=== PATIENT | female | born 1995 | race Hispanic/Latino ===

== ENCOUNTER 2019-10-18 22:31 | Day surgery (SDC) | payer BC ==
[2019-10-18] MEDS ORDERED: hydrALAZINE 20 MG/ML VIAL SLOW IVP PRN (23:31)
[2019-10-18 23:34] LABS: Amnisure Internal Control QC ACCEPTABLE (ACCEPTABLE)
[2019-10-18 23:36] LABS: Amnisure Test No Membranes Rupture (No Rupture)
[2019-10-18 23:47] LABS: Bacteria/HPF None Seen HPF (None Seen); Bilirubin Negative (Negative); Blood, Urine Negative (Negative); Clarity Clear (Clear); Glucose, Urine (Dipstick) Normal (Negative); Leukocyte Negative Leu/uL (Negative); Nitrite Negative (Negative); Protein, Urine (Dipstick) Negative (Neg-Trace); RBC/HPF 0-3 HPF (0-3); Squamous Epithelial 0-3 HPF (0-3); Urobilinogen Normal mg/dL (Less than 2); WBC/HPF 0-3 HPF (0-3)
[2019-10-18 23:50] LABS: Urine Culture Reflex No No
--- NOTE | 2019-10-19 00:46 | PDOC.FPROB ---
FMR OB H&P: HPI - History of Present Illness Chief Complaint: Abdominal pain Indentification: 23 year old at 37.1 wks History of Present Illness: 23 year old at 37.1 wks presents with abdominal pain in pelvic area since 21:30. Patient does state that the pain is intermittent and does seem to last for two to three minutes at a time. She also had leaking of fluid which she presumed to be urine. This was around 21:00. Patient states that she has not noted any additional leaking since that time. She denies vaginal bleeding, vaginal discharge, dysuria. Patient endorses good movement. Primary Care Physician: Dr. 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: Denies history of STD's - Surgical History Sx History: Cholecystectomy - Social History Social History: Denies tobacco, alcohol, or drug use FMR OB H&P: Medications - Current Home Medications: Medication Instructions Recorded Confirmed Type Comb No.42/Folic Acid 1 tab PO DAILY 10/18/19 10/18/19 History [Prena1 Chewable Tablet] Allergies/Adverse Reactions: Allergies Allergy/AdvReac Type Severity Reaction Status Date / Time No Known Allergies Allergy Verified 10/18/19 22:54 FMR OB H&P: ROS - Review of Systems General: denies: fever/chills, weight/appetite/sleep changes Eyes: denies: vision changes, scotomas ENT: denies: nasal congestion, rhinorrhea, sore throat Cardiovascular: denies: chest pain, palpitation, edema Respiratory: denies: cough, congestion, shortness of breath Gastrointestinal: reports: abdominal pain. denies: nausea, vomiting, diarrhea Genitourinary (Female): reports: vaginal discharge, contractions. denies: dysuria, vaginal pain, vaginal bleeding Musculoskeletal: denies: pain, stiffness, tenderness Neurologic: denies: numbness, syncope Integumentary: denies: itching, rash Psychological: denies: depression, anxiety FMR OB H&P: Vital Signs - Maternal Vital signs: BP 138/75 Pulse 106 Afebrile - Heart Tones Baseline: 135 Variability: moderate Acceleration: present Deceleration: absent Category: category 1 [place] contractions every: irregular FMR OB H&P: Physical Exam - Physical Exam General: NAD, awake, alert and oriented HEENT: MMM, grossly normal vision, grossly normal hearing Heart: RRR, pulses present General: CTAB, no wheezing Abdomen: soft, gravid Deviation from normal: TTP in pelvic region Musculoskeletal: pulses present, FROM in all four extremities Neurological: no tremor, no focal deficit Skin: no rash, capillary refill <2 seconds Lymphatic: no unusual bruising or bleeding, no purpura Psychiatric: intact recent and remote memory, good judgement and insight, normal mood and affect FMR OB H&P: Results - Labs Lab results: Laboratory Results - last 24 hr 10/18/19 10/18/19 23:10 23:10 Urine Color Light-Yellow Urine Clarity Clear Urine pH 7.0 Ur Specific [place] 1.014 Urine Protein Negative Urine Glucose (UA) Normal Urine Ketones Negative Urine Blood Negative Urine Nitrite Negative Urine Bilirubin Negative Urine Urobilinogen Normal Ur Leukocyte Esterase Negative Urine RBC 0-3 Urine WBC 0-3 Ur Squamous Epith Cells 0-3 Urine Bacteria None Seen Urine Culture Reflexed No Amnio Swab Test No Membranes Rupture FMR OB H&P: A/P - Problem List (1) Term Status: Acute Code(s): Z34.90 - ENCNTR FOR SUPRVSN OF NORMAL , UNSP, UNSP TRIMESTER Disposition: 23 year old at 37.1 wks TIUP - w/ contractions that are intermittent. Patient's body habitus makes monitoring difficult. She does not appear to be in any significant discomfort on my exam - NST reactive - UA straight cath negative - SVE on arrival 07/09/-2, unchanged two hours later - Patient may be experiencing round ligament pain in addition to intermittent contractions - No vaginal bleeding - BP WNL Leaking of fluid - Suspect urine, no additional leaking since first noted - Amnisure negative - Sterile speculum exam with no pooling of fluid and no fluid noted from os with cough. Moderate amount of white vaginal discharge. Dispo: No evidence of rupture or labor at this time. Discharge home with strict return precautions. Discussion: Date/Time: 10/19/1943 This H&P was discussed with Dr. Hernández who agrees with the above documentation and plan. Signature: Charlene Oliver, DO PGY-3 Addendum - Attending - Attending Attestation Date/Time: 10/19/19 0118 I personally evaluated the patient and discussed the management with Dr. Raygoza. I agree with the History, Examination, Assessment and Plan documented above.
== END 2019-10-19 01:08 | disposition home or self-care (01) ==
LOC: L&D/OP 22:31
PROVIDERS: ATTEND Obstetrics & Gynecology
DX: O99.89 Other specified diseases and conditions complicating pregnancy, childbirth and the puerperium (principal); R10.2 Pelvic and perineal pain; N89.8 Other specified noninflammatory disorders of vagina; O47.1 False labor at or after 37 completed weeks of gestation; O99.213 Obesity complicating pregnancy, third trimester; Z3A.37 37 weeks gestation of pregnancy; E66.9 Obesity, unspecified
CPT/HCPCS: 81001; 84112; 99284

== ENCOUNTER 2019-10-29 09:38 | Day surgery (SDC) | payer BC ==
[2019-10-29 10:12] VITALS: BMI 52.7
[2019-10-29] MEDS ORDERED: hydrALAZINE 20 MG/ML VIAL SLOW IVP PRN (10:45)
[2019-10-29] MEDS ORDERED: Morphine 2 MG/ML SYRINGE SLOW IVP SCH (11:00)
[2019-10-29] MEDS ORDERED: Promethazine HCl 25 MG in Sodium Chloride 0.9% 50 ML IVPB SCH (11:00)
[2019-10-29] MEDS ORDERED: Morphine 4 MG/ML VIAL IV SCH (11:00)
[2019-10-29] MEDS ORDERED: Morphine 4 MG/ML VIAL IM SCH (11:00)
[2019-10-29] MEDS ORDERED: Acetaminophen 500 MG TAB PO SCH (11:15)
--- NOTE | 2019-10-29 12:16 | PRG ---
DATE OF SERVICE: 10/29/2019 PRIMARY OB: Rachael Valencia MD CHIEF COMPLAINT: Abdominal pain. HISTORY OF PRESENT ILLNESS: The patient is a 23-year-old G1, P0 female with an intrauterine at 38 weeks and 5 days, presenting to Labor and Delivery today with uterine contractions that began about 4:30 this morning. She reports that they have been progressively worsening in intensity. She believes they are occurring about every 10 minutes. She denies any leakage of fluid or vaginal bleeding, but she does report a mucousy discharge. She also reports that yesterday she was seen by Dr. Valencia, her primary OB, at which time she was told she had dilated to 3 cm. The patient denies fever, cough, headache, chest pain, shortness of breath, nausea, vomiting, diarrhea, constipation, hip problems, knee problems, muscle weakness, any new rashes. Denies vaginal bleeding, urinary urgency or frequency. PAST MEDICAL HISTORY: Negative. PAST SURGICAL HISTORY: Negative. ALLERGIES: NO KNOWN DRUG ALLERGIES. MEDICATIONS: vitamins. SOCIAL HISTORY: Denies drug, alcohol, or tobacco use. OB LABS: Blood type is A positive. Antibody screen is negative. RPR is nonreactive. She is rubella immune. Hepatitis B surface antigen is nonreactive. HIV is nonreactive. She is GBS negative. REVIEW OF SYSTEMS: Per HPI. PHYSICAL EXAMINATION: VITAL SIGNS: Blood pressure is 117/69, heart rate of 98, and saturations 94% to 96% on room air. GENERAL: The patient is in no acute distress, in between contractions. She does visibly appeared to be having painful contractions when they come. She is alert and oriented, cooperative and pleasant to interact with. HEENT: Head is normocephalic, atraumatic. LUNGS: Clear to auscultation bilaterally. HEART: Has regular rate and rhythm. ABDOMEN: Gravid and soft, nontender. EXTREMITIES: Nontender, nonedematous. PELVIS: Cervical exam per nursing staff is 3, 70, and -3 station, unchanged from yesterday's reported exam. heart tracing shows the fetus with a baseline in the 140s with moderate long-term variability. Positive 15 x 15 accelerations, no decelerations. Contractions appear to be occurring about every 2 to 3 minutes. ASSESSMENT AND PLAN: The patient is a 23-year-old G1, P0 female with an intrauterine at 38 weeks and 5 days, here for evaluation of labor. She appears to be at least lately laboring. She is having painful contractions for which she has accepted pain medication, will be giving her 2 mg of morphine IV and 6 mg IM, two Tylenol and 25 mg of Phenergan IV piggyback. The patient will be re-evaluated in next 2 to 3 hours for any cervical change. I did give her primary OB, Dr. Valencia, an update and he reports she has an appointment tomorrow morning should she not be admitted for labor. Job ID: [id number]
[2019-10-29] MEDS ORDERED: Lactated Ringer's 2,000 ML IV SCH (13:15)
== END 2019-10-29 14:38 ==
LOC: L&D/OP 09:38
PROVIDERS: ATTEND Obstetrics & Gynecology
DX: O47.1 False labor at or after 37 completed weeks of gestation (principal); Z3A.38 38 weeks gestation of pregnancy
CPT/HCPCS: J2270; J2550

== ENCOUNTER 2019-10-29 20:14 | Inpatient (IN) | payer BC ==
[~2019-10-29 20:14] MED LIST: Bupivacaine/Epinephrine 0.25% 30 ML VIAL ONE; Lidocaine 2% MPF 10 ML AMP (For Epidural Use) ONE
[2019-10-29] MEDS ORDERED: Fentanyl 4 mcg/Bup 0.1% Cadd 100 ML ONE (20:24)
[2019-10-29] MEDS: Lactated Ringer's 1,000 ML IV SCH ×2 (20:30→21:22)
[2019-10-29 20:40] LABS: Hemoglobin 13.6 g/dL (12.0-16.0); Mean Corpuscular HGB CONC 35.2 g/dL (32.0-36.0); Mean Corpuscular Hemoglobin 30.7 pg (27.0-31.0); Mean Corpuscular Volume 87.4 fL (78.0-98.0); Mean Platelet Volume 9.1 fL (7.4-10.4); Platelet Count 176 thou/uL (130-400); RBC Distribution Width 13.3 % (11.5-14.5); Red Blood Cell (RBC) Count 4.43 mill/uL (4.20-5.40); White Blood Cell (WBC) Count 15.9 thou/uL (4.8-10.8)
[2019-10-29] MEDS ORDERED: Ibuprofen 800 MG TAB PO PRN (21:03)
[2019-10-29] MEDS ORDERED: Lidocaine 1% (PF) 30 ML VIAL SC PRN (21:03)
[2019-10-29] MEDS ORDERED: Ondansetron PF 4 MG/2 ML Vial IVP PRN ×2 (21:03→21:27)
[2019-10-29] MEDS ORDERED: HYDROcodone/Acetaminophen 5/325 mg Tablet PO PRN (21:03)
[2019-10-29] MEDS ORDERED: Butorphanol Tartrate 1 MG/ML VIAL SLOW IVP PRN (21:03)
[2019-10-29] MEDS ORDERED: hydrALAZINE 20 MG/ML VIAL SLOW IVP PRN (21:03)
[2019-10-29 21:11] LABS: Syphilis Antibody Nonreactive (Nonreactive); Syphilis Antibody Index 0.03 S/CO (<1.00 Non-Reactive)
[2019-10-29] MEDS ORDERED: Lactated Ringer's 1,000 ML IV SCH (21:15)
[2019-10-29] MEDS: Fentanyl 4 mcg/Bupivacaine 0.1% Cassette 100 ML EPIDURAL SCH (21:23)
[2019-10-29] MEDS ORDERED: diphenhydrAMINE 50 MG/ML VIAL IVP PRN (21:27)
[2019-10-29] MEDS ORDERED: Promethazine HCl 25 MG/ML VIAL IM PRN (21:27)
[2019-10-29] MEDS ORDERED: EPHEDRINE 25 MG/5 ML SYRINGE SLOW IVP PRN (21:27)
[2019-10-29] MEDS ORDERED: Acetaminophen 325 MG TAB PO PRN (21:27)
[2019-10-29] MEDS ORDERED: Naloxone HCl 0.4 mg/ml Vial IVP PRN ×2 (21:27)
[2019-10-29] MEDS ORDERED: Lactated Ringer's 500 ML IV PRN (21:27)
[2019-10-29] MEDS ORDERED: Communication Order-Pharmacy FS SCH (21:30)
[2019-10-29 23:07] LABS: HBSAg Index 0.17 S/CO (0-0.99); HIV (1/2) Antibody/Antigen Non-Reactive (NonReactive); HIV 1/2 INDEX 0.28 S/CO (<1.00); Hep B Surf Ag Non-Reactive S/CO (NonReactive)
[2019-10-29 23:19] VITALS: BMI 53.0
[2019-10-30] MEDS: Lactated Ringer's 1,000 ML IV SCH ×2 (03:05→20:55)
[2019-10-30] MEDS ORDERED: Fentanyl 4 mcg/Bup 0.1% Cadd 100 ML ONE (04:46)
[2019-10-30] MEDS: Fentanyl 4 mcg/Bupivacaine 0.1% Cassette 100 ML EPIDURAL SCH ×2 (04:51→10:21)
[2019-10-30] MEDS ORDERED: Ampicillin 2 GM in Sodium Chloride 0.9% 100 ML IVPB SCH (07:00)
[2019-10-30] MEDS: Ampicillin 2 GM in Sodium Chloride 0.9% 100 ML IVPB SCH ×2 (07:38→17:06)
--- NOTE | 2019-10-30 09:18 | PDOC.BPN ---
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 My exam was . AROM done after I reviewed the procedure with her. Indication was to place FSE to see better racing and CTX as FHTS with min variability (but no deceles) on monitor. AROM done without issue: 2 IUPCs attempted but both curled back due to station of 0. FSE placed without issue. AROM was about 10 minutes ago. I have tiger texted Dr Valencia as well.
[2019-10-30] MEDS ORDERED: Fentanyl 100 MCG/2 ML VIAL ONE (13:26)
[2019-10-30] MEDS ORDERED: NS w/ Oxytocin 10 units 500 ML ONE (13:44)
[2019-10-30] MEDS ORDERED: Butorphanol Tartrate 1 MG/ML VIAL ONE ×2 (15:26→15:27)
[2019-10-30] MEDS: NS / Oxytocin 40 units/1000ml 1,000 ML IV PRN ×2 (15:27→17:06)
[2019-10-30] MEDS ORDERED: Misoprostol 200 MCG TAB ONE (15:27)
[2019-10-30] MEDS ORDERED: Milk Of Magnesia 30 ML UDCUP PO PRN (16:30)
[2019-10-30] MEDS ORDERED: Ondansetron PF 4 MG/2 ML Vial IVP PRN (16:30)
[2019-10-30] MEDS ORDERED: Zolpidem Tartrate 5 MG TAB PO PRN (16:30)
[2019-10-30] MEDS ORDERED: Benzocaine-Menthol 82.5 ML CAN TOP PRN (16:30)
[2019-10-30] MEDS ORDERED: Misoprostol 200 MCG TAB VAG PRN (16:30)
[2019-10-30] MEDS ORDERED: Lanolin Ointment 7 GM TUBE TOP PRN (16:30)
[2019-10-30] MEDS ORDERED: diphenhydrAMINE 25 MG CAP PO PRN (16:30)
[2019-10-30] MEDS ORDERED: Preparation H Ointment 28 GM TUBE PR PRN (16:30)
[2019-10-30] MEDS ORDERED: NS / Oxytocin 40 units/1000ml 1,000 ML IV SCH (16:30)
[2019-10-30] MEDS ORDERED: Acetaminophen/Codeine 30-300mg Tablet PO PRN ×2 (16:30)
[2019-10-30] MEDS ORDERED: hydrALAZINE 20 MG/ML VIAL SLOW IVP PRN (16:30)
[2019-10-30] MEDS ORDERED: Bisacodyl 10 MG SUPP PR PRN (16:30)
[2019-10-30 17:43] LABS: Hemoglobin 9.9 g/dL (12.0-16.0); Mean Corpuscular HGB CONC 33.6 g/dL (32.0-36.0); Mean Corpuscular Hemoglobin 29.7 pg (27.0-31.0); Mean Corpuscular Volume 88.6 fL (78.0-98.0); Mean Platelet Volume 8.4 fL (7.4-10.4); Platelet Count 144 thou/uL (130-400); RBC Distribution Width 13.2 % (11.5-14.5); Red Blood Cell (RBC) Count 3.33 mill/uL (4.20-5.40); White Blood Cell (WBC) Count 19.8 thou/uL (4.8-10.8)
[2019-10-30 17:51] LABS: #Neutrophils 18.2 thou/uL (1.40-6.50); %Basophils 0.1 % (0.0-1.0); %Eosinophils 0.1 % (0.0-10.0); %Lymphocytes 2.4 % (21.0-51.0); %Monocytes 5.3 % (0.0-10.0); %Neutrophils 92.1 % (42.0-75.0); MDiff Complete? YES
[2019-10-30] MEDS: Ampicillin/Sulbactam 3 GM in Sodium Chloride 0.9% 100 ML IVPB SCH (19:10)
[2019-10-30] MEDS: Docusate Calcium (SURFAK) 240 MG CAP PO SCH (21:03)
[2019-10-30] MEDS: Ibuprofen 800 MG TAB PO SCH (21:04)
[2019-10-30] MEDS: Ferrous Sulfate 325 MG TAB PO SCH (21:06)
[2019-10-31] MEDS: Ampicillin/Sulbactam 3 GM in Sodium Chloride 0.9% 100 ML IVPB SCH ×2 (01:00→06:04)
[2019-10-31] MEDS: Ibuprofen 800 MG TAB PO SCH ×3 (06:04→21:52)
[2019-10-31 07:06] LABS: Hemoglobin 8.2 g/dL (12.0-16.0); Mean Corpuscular HGB CONC 33.3 g/dL (32.0-36.0); Mean Corpuscular Hemoglobin 29.9 pg (27.0-31.0); Mean Corpuscular Volume 89.7 fL (78.0-98.0); Platelet Count 135 thou/uL (130-400); RBC Distribution Width 13.4 % (11.5-14.5); Red Blood Cell (RBC) Count 2.74 mill/uL (4.20-5.40); White Blood Cell (WBC) Count 16.3 thou/uL (4.8-10.8)
[2019-10-31] MEDS: Docusate Calcium (SURFAK) 240 MG CAP PO SCH ×2 (09:29→21:52)
[2019-10-31] MEDS: Prenatal Vitamin 1 TAB PO SCH (09:29)
[2019-10-31] MEDS: Ferrous Sulfate 325 MG TAB PO SCH ×2 (09:29→17:47)
[2019-10-31] MEDS ORDERED: Adacel (T-DAP) 0.5 ML SYRINGE IM ONE (16:30)
[2019-11-01] MEDS: Ibuprofen 800 MG TAB PO SCH ×2 (06:20→13:47)
[2019-11-01 08:10] VITALS: BP 131/77; TEMP 97.8
[2019-11-01] MEDS: Prenatal Vitamin 1 TAB PO SCH (09:05)
[2019-11-01] MEDS: Docusate Calcium (SURFAK) 240 MG CAP PO SCH (09:05)
[2019-11-01] MEDS: Ferrous Sulfate 325 MG TAB PO SCH (09:05)
== END 2019-11-01 15:46 | disposition home or self-care (01) | DRG 805 ==
LOC: L&D 20:14 → 3SW 10-30 23:35
PROVIDERS: ADMIT Obstetrics & Gynecology; ATTEND Obstetrics & Gynecology
PROC: 10D07Z6 Extraction of Products of Conception, Vacuum, Via Natural or Artificial Opening (ICD-10-PCS; principal; 2019-10-30)
PROC: 10907ZC Drainage of Amniotic Fluid, Therapeutic from Products of Conception, Via Natural or Artificial Opening (ICD-10-PCS; 2019-10-30)
PROC: 4A1HXCZ Monitoring of Products of Conception, Cardiac Rate, External Approach (ICD-10-PCS; 2019-10-30)
PROC: 10H07YZ Insertion of Other Device into Products of Conception, Via Natural or Artificial Opening (ICD-10-PCS; 2019-10-30)
DX: O76 Abnormality in fetal heart rate and rhythm complicating labor and delivery (principal); O41.1230 Chorioamnionitis, third trimester, not applicable or unspecified; O72.2 Delayed and secondary postpartum hemorrhage; Z37.0 Single live birth; Z3A.39 39 weeks gestation of pregnancy
CPT/HCPCS: 36415; 51702; 59025; 85025; 85027; 86762; 86780; 86850; 86900; 86901; 87340; 87389; 88307; 96361; 96365; 96372; 96375; 99283; 99285; J0290; J0295; J0595; J2001; J2270; J2550; J2590; J3010; J3490